=== PATIENT | male | born 1945 | race Caucasian/White ===

== ENCOUNTER → 2016-11-14 | Outpatient (CLI) | payer OTHER ==
[~2016-11-14] MED LIST: CHOL100010 PO; CLR10 PO; CYAN10005 SL; GADAVIST IV PRN; GLUCTAB7 PO; LAMO100T16 PO; MULTTAB5 PO; OMEP40CA PO; POLY150C4 PO
--- NOTE | 2016-11-14 12:08 | DIAGNOSTIC IMAGING REPORT ---
MRI OF THE BRAIN COMBO CLINICAL HISTORY: Dizziness. Gait instability. History of meningioma status post resection. COMPARISON STUDY: MRI of the brain dated 11/18/2013. CT of the brain dated 10/03/2008. TECHNIQUE: MRI of the brain was performed utilizing various T1 and T2-weighted sequences in the axial, sagittal, and coronal planes. Contrast-enhanced sequences were acquired following the administration of 7.5 cc of Gadavist. The examination is performed using the seizure protocol. FINDINGS: Brain parenchyma: There is bifrontal encephalomalacia, as well as anterior herniation of right frontal lobe parenchyma at the craniectomy site which is similar to previous. There is mild patchy subcortical and periventricular microangiopathic disease. Again seen is dural based soft tissue thickening/nodularity identified at the posterior apex. This has only minimally increased in size from the 11/18/2013 examination. This measures up to 1.8 cm in thickness along the midline falx, and measures up to 1.4 cm in thickness deep to the left convexity. There is no significant associated mass effect. These lesion show slightly restricted diffusion. Minimal dural thickening and enhancement is also seen deep to the right parietal craniectomy site, there is a meningioma versus postoperative change. No hemorrhage is identified and there is no restricted diffusion seen typical for acute ischemia. No extra-axial fluid collection is seen. The cerebellar tonsils are normal in configuration. Ventricles, sulci, and cisterns: Prominent secondary to involutional change with ex vacuo dilatation of the frontal horns of the lateral ventricles. See above. Pituitary and sella: Unremarkable. Intracranial vasculature: Normal flow voids are maintained at the skull base. Orbits: The bony orbits are grossly intact. Orbital contents are normal in appearance noting a right ocular lens implant. Sinuses and mastoids: Clear. Calvarium: There are postoperative changes from extensive bifrontal and right parietal craniectomy. Cervical cord: Partially visualized cervical spinal cord is normal in morphology and signal intensity. IMPRESSION: 1. Again seen are extensive postoperative changes from craniectomy with bifrontal encephalomalacia and mild anterior herniation of right frontal lobe parenchyma. This is similar in appearance to the 2014 examination. 2. Again seen is enhancing extra-axial soft tissue material along the posterior/superior midline falx and deep to the left convexity. This has only minimally increased in size from the 2014 examination and likely represents recurrent/residual meningioma. 3. There is no significant mass effect. There is no evidence of hemorrhage or acute ischemia. Electronically signed by: Dejan Yip M.D. 11/14/2016 12:06 PM Dictated Date/Time: 11/14/2016 11:52 AM
== END | disposition home or self-care (01) ==
LOC: C.MRIBC 09:21
PROVIDERS: ATTEND Family Medicine Hospice and Palliative Medicine
DX: R42 Dizziness and giddiness (principal); Z98.890 Other specified postprocedural states

== ENCOUNTER → 2016-12-08 | Outpatient (CLI) | payer OTHER ==
[~2016-12-08] MED LIST changes: -GADAVIST IV PRN
[2016-12-08 12:02] LABS: BASO % 0.2 %; BASO ABS # 0.01 K/uL (0-0.2); COMPLETE YES; EOS % 2.2 %; HEMATOCRIT 42.7 % (42-52); IG% 0.2 %; LYMPH % 14.7 %; LYMPH ABS # 0.73 K/uL (1.2-3.4); MEAN CELL VOLUME 87.5 fL (80-100); MEAN CORPUSCULAR HEMOGLOBIN 28.9 pg (25-34); MONO % 8.9 %; NEUT % 73.8 %; PLATELET COUNT 236 K/uL (130-400); RED BLOOD COUNT 4.88 M/uL (4.7-6.1); WHITE BLOOD COUNT 4.96 K/uL (4.8-10.8)
[2016-12-08 12:18] LABS: ALT/SGPT 28 U/L (12-78); BLOOD UREA NITROGEN 15 mg/dl (7-18); BUN/CREATININE RATIO 18.3 (10-20); CARBON DIOXIDE 27 mmol/L (21-32); CHLORIDE 105 mmol/L (98-107); CREATININE 0.83 mg/dl (0.60-1.40); GLUCOSE 90 mg/dl (70-99); POTASSIUM 4.2 mmol/L (3.5-5.1); SODIUM 140 mmol/L (136-145)
[2016-12-08 12:20] LABS: CALCIUM 9.3 mg/dl (8.5-10.1)
[2016-12-08 12:29] LABS: ALB/GLOB RATIO 1.3 (0.9-2); ALKALINE PHOSPHATASE 106 U/L (45-117); AST/SGOT 18 U/L (15-37)
== END | disposition home or self-care (01) ==
LOC: C.LAB 09:31
PROVIDERS: ATTEND Psychiatry & Neurology Neurology
DX: R56.9 Unspecified convulsions (principal)

== ENCOUNTER 2018-09-10 12:28 | Inpatient (IN) ==
--- NOTE | 2018-09-10 14:29 | Emergency Department Note ---
Entered by Sally Avendaño acting as a scribe for Jaime Lantigua DO History of Present Illness General Chief complaint: Seizure Time Seen by Provider: 09/10/18 13:04 Source: patient and family History of Present Illness Provider complaint: seizures Onset (ago): day(s) (this morning) Location: left and right Severity: similar to prior episodes Pain Consistency: + other (multiple episodes) Quality: + other (seizures) Treatments prior to arrival: other (increased Kepra) The patient is a 72 year old male who presents to the Emergency Room with complaints of multiple episodes of seizures beginning this morning. His family notes the patient's first seizure lasted 10-15 minutes, and the second lasted a few minutes. They report the patient stares into space and will repeat words during these episodes. His family states the patient's caregivers at [facility] believe he needs more skilled care. The patient was seen in the ED 3 days ago for seizures and he was given an IV dose of Kepra and discharged after consult with Dr. Corbett. I did review the patient's test results. He had CT scan of the brain as well as blood work performed. The patient was discharged back to the nursing facility. The patient had a couple of brief seizures today. He had a couple of seizures here in the ED as well that were witnessed by the nurse. The last for less than a minute. They involve a staring episode with some lip smacking. There is no postictal. Once these terminate, the patient is able to carry on a conversation and is awake, alert and oriented. I spoke with Dr. Espinoza about this. He recommends increasing the patient's Lamictal to 400 mg twice a day (from 200 +400). He recommends continuing the patient on the Keppra at 1 g twice a day. The [facility] is unwilling to accept the patient back to their facility as they feel he needs fdc. distribution center manager is currently in the process of trying to find the patient a place to stay at a fdc facility. The patient is currently asymptomatic and without any complaints. He did have a couple of partial seizures here. He was given his evening Lamictal dose of 400 mg. The patient is is felt to be good for [facility] however they wanted the patient to stay overnight and they would accept the patient potentially tomorrow. I spoke with the hospitalist, who will see the patient for further evaluation/observation. Home Medications Home Medications Medication Instructions Recorded Confirmed Type acetaminophen [Tylenol] 650 mg PO Q6H PRN 09/07/18 09/10/18 History amantadine HCl 100 mg PO DAILY 09/07/18 09/10/18 History ascorbic acid (vitamin C) [Vitamin 500 mg PO DAILY 09/07/18 09/10/18 History C] atorvastatin 10 mg PO PM 09/07/18 09/10/18 History chlorhexidine gluconate 15 ml PO BID 09/07/18 09/10/18 History cholecalciferol (vitamin D3) 2,000 unit PO DAILY 09/07/18 09/10/18 History [Vitamin D3] cyanocobalamin (vitamin B-12) 2,500 mcg PO DAILY 09/07/18 09/10/18 History [Vitamin B-12] docusate sodium [Colace] 100 mg PO BID 09/07/18 09/10/18 History doxazosin 2 mg PO BID 09/07/18 09/10/18 History lamotrigine 200 mg PO DAILY 09/07/18 09/10/18 History lamotrigine 400 mg PO PM 09/07/18 09/10/18 History melatonin 6 mg PO HS 09/07/18 09/10/18 History modafinil 100 mg PO DAILY 09/07/18 09/10/18 History multivitamin [Daily Vitamin 1 tab PO PM 09/07/18 09/10/18 History Formula] ondansetron HCl [Zofran] 4 mg PO TID PRN 09/07/18 09/10/18 History pantoprazole 40 mg PO DAILY 09/07/18 09/10/18 History polyethylene glycol 3350 [GlycoLax] 17 g PO DAILY PRN 09/07/18 09/10/18 History propranolol 60 mg PO DAILY 09/07/18 09/10/18 History sennosides [senna] 8.6 mg PO DAILY 09/07/18 09/10/18 History sennosides [senna] 17.2 mg PO Q3D PRN 09/07/18 09/10/18 History sodium chloride 1,000 mg PO DAILY 09/07/18 09/10/18 History zinc sulfate 220 mg PO DAILY 09/07/18 09/10/18 History levetiracetam [Keppra] 2,000 mg PO BID 09/10/18 09/10/18 History Allergies Allergy/AdvReac Type Severity Reaction Status Date / Time Penicillins Allergy Unknown . Verified 09/10/18 13:56 prochlorperazine AdvReac Intermediate tongue Verified 09/10/18 13:56 involuntary movements adhesive AdvReac Mild skin Verified 09/10/18 13:56 reaction latex AdvReac Mild RASH-LATEX Verified 09/10/18 13:56 TAPE amoxicillin AdvReac Unknown Unverified 09/10/18 13:56 Past Med/Surg History Medical History Rectal carcinoma (Chronic ~07/2010) Encounter for removal of earline (Acute) Fall (Acute) Laceration of left hand (Acute) Periorbital contusion of right eye (Acute) Meningioma Seizure Surgical History H/O brain surgery (Resolved) Family History Other Family history non-contributory Social History marital status: Current Living Situation: Personal Care Facility current occupational status: retired Feels Safe at Home: Yes Smoking Status: Never smoker Preferred Language: Nepali Review of Systems See HPI for pertinent positives & negatives. and A total of 10 systems reviewed and were otherwise negative Physical Exam Vital Signs Vital Signs - 24 hr 09/10/18 12:38 09/10/18 14:03 Temperature 36.7 C Temperature Source Oral Sepsis Recent Fever Within 48 Hours No Sepsis Action Taken by Nursing No Action Required Pulse Rate 50 L Pulse Rate [Left] 51 L Respiratory Rate 18 20 Respiratory Effort / Characteristics Non-Labored Spontaneous Non-Labored Spontaneous Respiratory Depth Normal Normal Respiratory Pattern Regular Blood Pressure 133/77 Blood Pressure [Right Arm] 115/73 Blood Pressure Mean 95 Blood Pressure Mean [Right Arm] 87 Pulse Oximetry 98 97 Oxygen Delivery Method Room Air Room Air CONSTITUTIONAL/VITAL SIGNS: Reviewed / noted above. GENERAL: Non-toxic in appearance. Generalized weakness. INTEGUMENTARY: Warm, dry, and [place]. HEAD: Normocephalic. EYES: without scleral icterus or trauma. ENT/OROPHARYNX: clear and moist. LYMPHADENOPATHY/NECK: Is supple without lymphadenopathy or meningismus. RESPIRATORY: Lungs clear and equal. CARDIOVASCULAR: Regular rate and rhythm. GI/ABDOMEN: Soft and nontender. No organomegaly or pulsatile mass. No rebound or guarding. Normal bowel sounds. EXTREMITIES: Warm and well perfused. BACK: No CVA tenderness. NEUROLOGICAL: Intact without focal deficits. PSYCHIATRIC: normal affect. MUSCULOSKELETAL: Normally developed with good muscle tone. Course 1308: Past medical records reviewed. The patient was evaluated in room C3, and a complete history and physical examination were performed. 1427: I reviewed the patient's case with Dr. Espinoza, [facility] neurology. He recommends increasing the patient's Lamictal dose to 400 mg twice daily, and to keep the Keppra dose the same. 1436: I reevaluated and updated the patient and his family. Administered Medications Discontinued Medications Lamotrigine (Lamictal) 400 mg PO NOW STA Stop: 09/10/18 14:35 Last Admin: 09/10/18 14:49 Dose: 400 mg Medical Decision Making Differential Diagnosis Differential includes acute cardiac dysrhythmia, microinfarction, CVA, TIA, dehydration, anemia, electrolyte disturbance, seizure, trauma, intracranial bleeding, acute vascular catastrophe, thoracic aortic dissection, PE, abdominal aortic aneurysm rupture, ectopic rupture. Medical Records Attestation: I reviewed the patient's medical records. Home Medications Current Medication List: was personally reviewed by me Blood Pressure Blood Pressure Findings: Normal blood pressure Blood Pressure Disposition: did not require urgent referral MDM Narrative The patient is a 72 year old male who presents to the Emergency Room with complaints of multiple episodes of seizures beginning this morning. His family notes the patient's first seizure lasted 10-15 minutes, and the second lasted a few minutes. They report the patient stares into space and will repeat words during these episodes. His family states the patient's caregivers at [facility] believe he needs more skilled care. The patient was seen in the ED 3 days ago for seizures and he was given an IV dose of Kepra and discharged after consult with Dr. Corbett. I did review the patient's test results. He had CT scan of the brain as well as blood work performed. The patient was discharged back to the nursing facility. The patient had a couple of brief seizures today. He had a couple of seizures here in the ED as well that were witnessed by the nurse. The last for less than a minute. They involve a staring episode with some lip smacking. There is no postictal. Once these terminate, the patient is able to carry on a conversation and is awake, alert and oriented. I spoke with Dr. Espinoza about this. He recommends increasing the patient's Lamictal to 400 mg twice a day (from 200 +400). He recommends continuing the patient on the Keppra at 1 g twice a day. The [facility] is unwilling to accept the patient back to their facility as they feel he needs fdc. distribution center manager is currently in the process of trying to find the patient a place to stay at a fdc facility. The patient is currently asymptomatic and without any complaints. He did have a couple of partial seizures here. He was given his evening Lamictal dose of 400 mg. The patient is is felt to be good for [facility] however they wanted the patient to stay overnight and they would accept the patient potentially tomorrow. I spoke with the hospitalist, who will see the patient for further evaluation/observation. Impression & Plan Recurrent seizures Discharge Plan Visit Data Chief Complaint: Seizure ED Provider: Jaime Lantigua Discharge Problem: Recurrent seizures Patient Disposition: Being Evaluated by Hospitalist Condition: Good Forms Stand Alone Forms: [facility] Prescriptions Prescriptions: No Action levetiracetam [Keppra] 1,000 mg Tablet 2,000 mg PO BID RF: 0 multivitamin [Daily Vitamin Formula] Tablet 1 tab PO PM RF: 0 sennosides [senna] 8.6 mg Tablet 8.6 mg PO DAILY RF: 0 sennosides [senna] 8.6 mg Tablet 17.2 mg PO Q3D PRN (Reason: no bowel movement) RF: 0 acetaminophen [Tylenol] 325 mg Tablet 650 mg PO Q6H PRN (Reason: pain/fever) RF: 0 lamotrigine 200 mg tablet 200 mg PO DAILY RF: 0 lamotrigine 200 mg tablet 400 mg PO PM RF: 0 atorvastatin 10 mg tablet 10 mg PO PM RF: 0 ondansetron HCl [Zofran] 4 mg Tablet 4 mg PO TID PRN (Reason: Nausea And Vomiting) RF: 0 propranolol 60 mg capsule,extended release 24 hr 60 mg PO DAILY RF: 0 sodium chloride 1 gram Tablet 1,000 mg PO DAILY RF: 0 cyanocobalamin (vitamin B-12) [Vitamin B-12] 1,000 mcg Tablet 2,500 mcg PO DAILY RF: 0 melatonin 3 mg Tablet 6 mg PO HS RF: 0 amantadine HCl 100 mg capsule 100 mg PO DAILY RF: 0 ascorbic acid (vitamin C) [Vitamin C] 500 mg Tablet 500 mg PO DAILY RF: 0 pantoprazole 40 mg tablet,delayed release (DR/EC) 40 mg PO DAILY RF: 0 docusate sodium [Colace] 100 mg Capsule 100 mg PO BID RF: 0 polyethylene glycol 3350 [GlycoLax] 17 gram/dose Powder 17 g PO DAILY PRN (Reason: Constipation) RF: 0 doxazosin 2 mg tablet 2 mg PO BID RF: 0 modafinil 100 mg tablet 100 mg PO DAILY RF: 0 chlorhexidine gluconate 0.12 % mouthwash 15 ml PO BID RF: 0 zinc sulfate 220 (50) mg Capsule 220 mg PO DAILY RF: 0 cholecalciferol (vitamin D3) [Vitamin D3] 1,000 unit Tablet 2,000 unit PO DAILY RF: 0 Referrals Referrals: MARCOS FLEMING [Primary Care Provider] - The scribe's documentation has been prepared under my direction and personally reviewed by me in its entirety. I confirm that the note above accurately reflects all work, treatment, procedures, and medical decision making performed by me.
[2018-09-10] MEDS ORDERED: lamoTRIgine 100 MG TAB PO STA (14:34)
--- NOTE | 2018-09-10 17:48 | History & Physical Report ---
Date of Service September 10, 2018 Assessment & Plan (1) Seizure: Recurrent issue Seen in ED 09/07 with CXR, CT head, CBC, PRP, UA neg Dr. Espinoza recs for increased lamictal dosing Planning for [facility], however they would like pt monitored overnight prior to accepting him (2) HTN (hypertension): continue home meds (3) Hyperlipidemia: continue home meds (4) GERD (gastroesophageal reflux disease): continue home meds (5) DVT prophylaxis: SCDs, likely short duration of admission and will hold on rx proph History of Present Illness Primary Care Provider: LOIDA RODRÍGUEZ 72 y/o M who was brought to the ED for recurrent seizures. Pt was seen in the ED on 09/07 for increased seizure activity. He was treated with additional keppra dosing and sent back to [facility]. Pt continued to have increased seizure activity over the weekend and today the pt and family were told that he is requiring too much care for a H and will need placed in a SNF. Pt's seizures are reported to him as staring episodes and word repeating. He denies hx of shaking seizures. He states he feels fine at this time. He was able to eat most of a tray. Pt denies fever, SOB, chest pain, abd pain, n/v/c/d, LE pain or swelling. Outside of the increased seizures, he states he has felt at his usual. ED spoke with Dr. Espinoza who recommended for increased lamictal, 200mg to 400mg BID. He is familiar with pt from outpt care. ED also spoke with [facility] who has agreed to accept pt, however they would like him monitored overnight with this medication change. Family is not present during my discussion with pt. Allergies Allergy/AdvReac Type Severity Reaction Status Date / Time Penicillins Allergy Unknown . Verified 09/10/18 13:56 prochlorperazine AdvReac Intermediate tongue Verified 09/10/18 13:56 involuntary movements adhesive AdvReac Mild skin Verified 09/10/18 13:56 reaction latex AdvReac Mild RASH-LATEX Verified 09/10/18 13:56 TAPE amoxicillin AdvReac Unknown Unverified 09/10/18 13:56 Home Medications Home Medications Medication Instructions Recorded Confirmed Type acetaminophen [Tylenol] 650 mg PO Q6H PRN 09/07/18 09/10/18 History amantadine HCl 100 mg PO DAILY 09/07/18 09/10/18 History ascorbic acid (vitamin C) [Vitamin 500 mg PO DAILY 09/07/18 09/10/18 History C] atorvastatin 10 mg PO PM 09/07/18 09/10/18 History chlorhexidine gluconate 15 ml PO BID 09/07/18 09/10/18 History cholecalciferol (vitamin D3) 2,000 unit PO DAILY 09/07/18 09/10/18 History [Vitamin D3] cyanocobalamin (vitamin B-12) 2,500 mcg PO DAILY 09/07/18 09/10/18 History [Vitamin B-12] docusate sodium [Colace] 100 mg PO BID 09/07/18 09/10/18 History doxazosin 2 mg PO BID 09/07/18 09/10/18 History lamotrigine 200 mg PO DAILY 09/07/18 09/10/18 History lamotrigine 400 mg PO PM 09/07/18 09/10/18 History melatonin 6 mg PO HS 09/07/18 09/10/18 History modafinil 100 mg PO DAILY 09/07/18 09/10/18 History multivitamin [Daily Vitamin 1 tab PO PM 09/07/18 09/10/18 History Formula] ondansetron HCl [Zofran] 4 mg PO TID PRN 09/07/18 09/10/18 History pantoprazole 40 mg PO DAILY 09/07/18 09/10/18 History polyethylene glycol 3350 [GlycoLax] 17 g PO DAILY PRN 09/07/18 09/10/18 History propranolol 60 mg PO DAILY 09/07/18 09/10/18 History sennosides [senna] 8.6 mg PO DAILY 09/07/18 09/10/18 History sennosides [senna] 17.2 mg PO Q3D PRN 09/07/18 09/10/18 History sodium chloride 1,000 mg PO DAILY 09/07/18 09/10/18 History zinc sulfate 220 mg PO DAILY 09/07/18 09/10/18 History levetiracetam [Keppra] 2,000 mg PO BID 09/10/18 09/10/18 History Past Med/Surg History Medical History Rectal carcinoma (Chronic ~07/2010) Encounter for removal of earline (Acute) Fall (Acute) Laceration of left hand (Acute) Periorbital contusion of right eye (Acute) Meningioma Seizure Surgical History H/O brain surgery (Resolved) Social History marital status: Current Living Situation: Personal Care Facility current occupational status: retired Feels Safe at Home: Yes Smoking Status: Never smoker Hx Alcohol Use: No Hx Substance Use: No Preferred Language: Mohawk Review of Systems Pertinent positives and negatives reviewed in HPI--all others negative Physical Exam 2 Vital Signs (Past 24 Hours): Last Vital Signs Temp 36.7 C 09/10/18 12:38 Pulse 61 09/10/18 16:47 Resp 20 09/10/18 16:47 BP 115/73 09/10/18 14:03 Pulse Ox 98 09/10/18 16:47 Constitutional: WD/WN, vitals as above Eyes: normal visual dill by confrontation and + anicteric sclerae Neck: normal visual inspection and trachea midline Respiratory: normal respiratory effort, lungs clear to auscultation Cardiovascular: Rate/Rhythm: regular rate and regular rhythm Gastrointestinal (Abdomen): Inspection/Auscultation: abdomen not distended Percussion/Palpation: abdomen soft; abdomen nontender Musculoskeletal: Head/Neck/Chest: normocephalic and head atraumatic negative for edema, peripheral pulses intact Skin: no rashes, warm and dry Neurologic: awake; not confused Speech / Cognition: normal speech Psychiatric: A+Ox3, euthymic affect Results & Data Diagnostic Findings CT head 09/07 neg for acute Code Status & VTE Plan Code Status Full code VTE Prophylaxis Plan VTE Prophylaxis will be ordered: Yes
[2018-09-10] MEDS ORDERED: MAGNESIUM HYDROXIDE SUSP 30 ML UDC PO PRN (18:32)
[2018-09-10] MEDS ORDERED: ONDANSETRON 4 MG TAB PO PRN (18:32)
[2018-09-10] MEDS ORDERED: POLYETHYLENE (MIRALAX) 17 GM PACK PO PRN (18:32)
[2018-09-10] MEDS ORDERED: SENNA 8.6 MG TAB PO PRN (18:32)
[2018-09-10] MEDS ORDERED: ONDANSETRON INJ 2 MG/ML 2 ML VIAL IV PRN (18:32)
[2018-09-10] MEDS ORDERED: ACETAMINOPHEN 325 MG TAB PO PRN ×2 (18:32)
[2018-09-10] MEDS: DOCUSATE SODIUM 100 MG CAP PO SCH (20:39)
[2018-09-10] MEDS: MULTIVITAMIN TAB PO SCH (20:39)
[2018-09-10] MEDS: levETIRAcetam 500 MG TAB PO SCH (20:40)
[2018-09-10] MEDS: ATORVASTATIN 10 MG TAB PO SCH (20:40)
[2018-09-10] MEDS: lamoTRIgine 100 MG TAB PO SCH (20:40)
[2018-09-10] MEDS: DOXAZosin MESYLATE TAB 2 MG TAB PO SCH (20:41)
[2018-09-10] MEDS: CHLORHEXIDINE GLUCONATE 0.12% 480 ML MT SCH (20:41)
[2018-09-10] MEDS ORDERED: MELATONIN 6 MG PO SCH (21:00)
[2018-09-10] MEDS ORDERED: LORazepam 1 MG/2 ML VIAL IV PRN (23:43)
[2018-09-11] MEDS: DOXAZosin MESYLATE TAB 2 MG TAB PO SCH ×2 (08:31→20:17)
[2018-09-11] MEDS: PROPRANOLOL HCL 60 MG LA CAP PO SCH (08:31)
[2018-09-11] MEDS: DOCUSATE SODIUM 100 MG CAP PO SCH ×2 (08:31→20:17)
[2018-09-11] MEDS: lamoTRIgine 100 MG TAB PO SCH ×2 (08:32→20:17)
[2018-09-11] MEDS: CHLORHEXIDINE GLUCONATE 0.12% 480 ML MT SCH ×2 (08:32→20:18)
[2018-09-11] MEDS: levETIRAcetam 500 MG TAB PO SCH ×2 (08:32→20:18)
[2018-09-11] MEDS: SODIUM CHLORIDE 1 GM TABLET PO SCH (08:33)
[2018-09-11] MEDS: SENNA 8.6 MG TAB PO SCH (08:33)
[2018-09-11] MEDS: PANTOprazole 40 MG TAB PO SCH (08:33)
[2018-09-11] MEDS: AMANTADINE HCL 100 MG CAPSULE PO SCH (08:34)
[2018-09-11] MEDS: CYANOCOBALAMIN (VITAMIN B-12) 2,500 MCG TAB.SUBL SL SCH (08:34)
[2018-09-11] MEDS: CHOLECALCIFEROL 1,000 UNITS TAB PO SCH (08:34)
[2018-09-11] MEDS: ASCORBIC ACID 500 MG TAB PO SCH (08:34)
[2018-09-11] MEDS: ZINC SULFATE 220 MG CAPSULE PO SCH (08:35)
[2018-09-11] MEDS: MODAFINIL 100 MG TAB PO SCH (08:52)
--- NOTE | 2018-09-11 11:02 | Procedure Note ---
EEG Procedure Note Date of Service September 11, 2018 Start / End Times Start Time: 9:29am End Time: 9:49am Referring Physician Dr Singh History 72 yr old male with recurrent seizure like activity. EEG for further eval of seizure etiology Home Medication List Home Medications Medication Instructions Recorded Confirmed Type acetaminophen [Tylenol] 650 mg PO Q6H PRN 09/07/18 09/10/18 History amantadine HCl 100 mg PO DAILY 09/07/18 09/10/18 History ascorbic acid (vitamin C) [Vitamin 500 mg PO DAILY 09/07/18 09/10/18 History C] atorvastatin 10 mg PO PM 09/07/18 09/10/18 History chlorhexidine gluconate 15 ml PO BID 09/07/18 09/10/18 History cholecalciferol (vitamin D3) 2,000 unit PO DAILY 09/07/18 09/10/18 History [Vitamin D3] cyanocobalamin (vitamin B-12) 2,500 mcg PO DAILY 09/07/18 09/10/18 History [Vitamin B-12] docusate sodium [Colace] 100 mg PO BID 09/07/18 09/10/18 History doxazosin 2 mg PO BID 09/07/18 09/10/18 History lamotrigine 200 mg PO DAILY 09/07/18 09/10/18 History lamotrigine 400 mg PO PM 09/07/18 09/10/18 History melatonin 6 mg PO HS 09/07/18 09/10/18 History modafinil 100 mg PO DAILY 09/07/18 09/10/18 History multivitamin [Daily Vitamin 1 tab PO PM 09/07/18 09/10/18 History Formula] ondansetron HCl [Zofran] 4 mg PO TID PRN 09/07/18 09/10/18 History pantoprazole 40 mg PO DAILY 09/07/18 09/10/18 History polyethylene glycol 3350 [GlycoLax] 17 g PO DAILY PRN 09/07/18 09/10/18 History propranolol 60 mg PO DAILY 09/07/18 09/10/18 History sennosides [senna] 8.6 mg PO DAILY 09/07/18 09/10/18 History sennosides [senna] 17.2 mg PO Q3D PRN 09/07/18 09/10/18 History sodium chloride 1,000 mg PO DAILY 09/07/18 09/10/18 History zinc sulfate 220 mg PO DAILY 09/07/18 09/10/18 History levetiracetam [Keppra] 2,000 mg PO BID 09/10/18 09/10/18 History Inpatient Medication List Amantadine HCl (Symmetrel) 100 mg PO DAILY TRA Stop: 10/11/18 08:59 Last Admin: 09/11/18 08:34 Dose: 100 mg Ascorbic Acid (Vitamin C) 500 mg PO DAILY TRA Stop: 10/11/18 08:59 Last Admin: 09/11/18 08:34 Dose: 500 mg Atorvastatin Calcium (Lipitor) 10 mg PO PM TRA Stop: 10/10/18 20:59 Last Admin: 09/10/18 20:40 Dose: 10 mg Chlorhexidine Gluconate (Peridex) 15 ml MT BID TRA Stop: 10/10/18 20:59 Last Admin: 09/11/18 08:32 Dose: 15 ml Admin: 09/10/18 20:41 Dose: 15 ml Cyanocobalamin (Vitamin B-12) 2,500 mcg SL DAILY TRA Stop: 10/11/18 08:59 Last Admin: 09/11/18 08:34 Dose: 2,500 mcg Docusate Sodium (Colace) 100 mg PO BID TRA Stop: 10/10/18 20:59 Last Admin: 09/11/18 08:31 Dose: 100 mg Admin: 09/10/18 20:39 Dose: 100 mg Doxazosin Mesylate (Cardura) 2 mg PO BID TRA Stop: 10/10/18 20:59 Last Admin: 09/11/18 08:31 Dose: 2 mg Admin: 09/10/18 20:41 Dose: 2 mg Lamotrigine (Lamictal) 400 mg PO BID TRA Stop: 10/10/18 20:59 Last Admin: 09/11/18 08:32 Dose: 400 mg Admin: 09/10/18 20:40 Dose: 400 mg Levetiracetam (Keppra) 2,000 mg PO BID TRA Stop: 10/10/18 20:59 Last Admin: 09/11/18 08:32 Dose: 2,000 mg Admin: 09/10/18 20:40 Dose: 2,000 mg Modafinil (Provigil) 100 mg PO DAILY TRA Stop: 10/11/18 08:59 Last Admin: 09/11/18 08:52 Dose: 100 mg Multivitamins (Multivitamin Tab) 1 tab PO PM TRA Stop: 10/10/18 20:59 Last Admin: 09/10/18 20:39 Dose: 1 tab Pantoprazole Sodium (Protonix) 40 mg PO DAILY TRA Stop: 10/11/18 08:59 Last Admin: 09/11/18 08:33 Dose: 40 mg Propranolol HCl (Inderal La) 60 mg PO DAILY TRA Stop: 10/11/18 08:59 Last Admin: 09/11/18 08:31 Dose: 60 mg Sennosides (Senokot) 8.6 mg PO DAILY TRA Stop: 10/11/18 08:59 Last Admin: 09/11/18 08:33 Dose: 8.6 mg Sodium Chloride (Sodium Chloride) 1 gm PO DAILY TRA Stop: 10/11/18 08:59 Last Admin: 09/11/18 08:33 Dose: 1 gm Vitamin D (Vitamin D3) 2,000 units PO DAILY TRA Stop: 10/11/18 08:59 Last Admin: 09/11/18 08:34 Dose: 2,000 units Zinc Sulfate (Zinc Sulfate) 220 mg PO DAILY TRA Stop: 10/11/18 08:59 Last Admin: 09/11/18 08:35 Dose: 220 mg Discontinued Medications Lamotrigine (Lamictal) 400 mg PO NOW STA Stop: 09/10/18 14:35 Last Admin: 09/10/18 14:49 Dose: 400 mg Description This is a 21 electrode EEG with a single channel dedicated to limited EKG. The electrodes were placed in accordance with the International 10-20 system. Moderate to severe technical limitations due to frequent movement artifact. At the start of the recording the patient was awake but reportedly confused. Background was poorly organized with no well formed anterior to posterior gradient. Background was composed of predominantly 6-7Hz theta frequencies with intermixed alpha and beta frequencies. Hyperventilation and Intermittent photic stimulation were not done due to mental status. There was no state changes. Interpretation This is an abnormal routine EEG secondary to mild-moderate background disorganization and slowing. There was no clear focal slowing, electrographic seizures or epileptiform discharges, but this EEG was technically limited by frequent movement artifact. Clinical Correlation This EEG indicates a mild to moderate encephalopathy of nonspecific etiology.
--- NOTE | 2018-09-11 11:02 | Neurology Consultation ---
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 Continue Lamictal and Keppra at the current dosages which are currently maximal. Given that this patient continues to experience probable partial complex seizures I would recommend adding Vimpat 50 mg twice daily as an adjunctive anticonvulsant. The dose of this medication may be increased at weekly intervals depending on his clinical status going forward. 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 Patient also has chronic motor weakness affecting the lower limbs, right greater than left as a result of the observed chronic frontal encephalomalacia. These issues are chronic and also impact this patient 's ability to care for himself and would also be expected to contribute to his need for long term placement. History of Present Illness Reason for Consultation: Recurrent seizures Requesting Physician: Ivett Johansen DO Attending Physician: Hugo Flores History of Present Illness The patient is a 72-year-old male with a history of parafalcine meningioma treated with resection and radiation over 10 years ago and subsequent development of a seizure disorder, probably partial complex seizures, for which she follows periodically with Dr. Espinoza. The patient's seizures have been characterized as episodic staring, lip smacking, and repeating words. These episodes have been occurring intermittently in spite of treatment with increasing dosages of Lamictal and Keppra. The patient has been admitted for further evaluation of these recurrent spells and for eventual transfer to a nursing facility given his chronic neurological impairments that impact his ability to function independently. The patient is able to relay some details pertaining to his past medical history although he speaks in a somewhat abulic fashion and appears moderately inattentive. He also exhibits a moderate bilateral upper extremity action tremor as well as some mild chronic right- sided weakness which impacts his ability to care for self and ambulate. He is not really able to give a greater degree of details pertaining to his episodic seizures although the episodes reportedly last a few minutes and are followed by a return to normal baseline functioning. They have been characterized as recurrent partial complex seizures. Allergies Allergy/AdvReac Type Severity Reaction Status Date / Time Penicillins Allergy Unknown . Verified 09/10/18 13:56 prochlorperazine AdvReac Intermediate tongue Verified 09/10/18 13:56 involuntary movements adhesive AdvReac Mild skin Verified 09/10/18 13:56 reaction latex AdvReac Mild RASH-LATEX Verified 09/10/18 13:56 TAPE amoxicillin AdvReac Unknown Unverified 09/10/18 13:56 Home Medications Home Medications Medication Instructions Recorded Confirmed Type acetaminophen [Tylenol] 650 mg PO Q6H PRN 09/07/18 09/10/18 History amantadine HCl 100 mg PO DAILY 09/07/18 09/10/18 History ascorbic acid (vitamin C) [Vitamin 500 mg PO DAILY 09/07/18 09/10/18 History C] atorvastatin 10 mg PO PM 09/07/18 09/10/18 History chlorhexidine gluconate 15 ml PO BID 09/07/18 09/10/18 History cholecalciferol (vitamin D3) 2,000 unit PO DAILY 09/07/18 09/10/18 History [Vitamin D3] cyanocobalamin (vitamin B-12) 2,500 mcg PO DAILY 09/07/18 09/10/18 History [Vitamin B-12] docusate sodium [Colace] 100 mg PO BID 09/07/18 09/10/18 History doxazosin 2 mg PO BID 09/07/18 09/10/18 History lamotrigine 200 mg PO DAILY 09/07/18 09/10/18 History lamotrigine 400 mg PO PM 09/07/18 09/10/18 History melatonin 6 mg PO HS 09/07/18 09/10/18 History modafinil 100 mg PO DAILY 09/07/18 09/10/18 History multivitamin [Daily Vitamin 1 tab PO PM 09/07/18 09/10/18 History Formula] ondansetron HCl [Zofran] 4 mg PO TID PRN 09/07/18 09/10/18 History pantoprazole 40 mg PO DAILY 09/07/18 09/10/18 History polyethylene glycol 3350 [GlycoLax] 17 g PO DAILY PRN 09/07/18 09/10/18 History propranolol 60 mg PO DAILY 09/07/18 09/10/18 History sennosides [senna] 8.6 mg PO DAILY 09/07/18 09/10/18 History sennosides [senna] 17.2 mg PO Q3D PRN 09/07/18 09/10/18 History sodium chloride 1,000 mg PO DAILY 09/07/18 09/10/18 History zinc sulfate 220 mg PO DAILY 09/07/18 09/10/18 History levetiracetam [Keppra] 2,000 mg PO BID 09/10/18 09/10/18 History Patient History Medical History Rectal carcinoma (Chronic ~07/2010) Encounter for removal of earline (Acute) Fall (Acute) Laceration of left hand (Acute) Periorbital contusion of right eye (Acute) Meningioma Seizure Surgical History H/O brain surgery (Resolved) Family History Other Family history non-contributory Social History marital status: Current Living Situation: Personal Care Facility current occupational status: retired Other Information That Helps Us Care for You: No Feels Safe at Home: Yes Safety Concerns: Feels Safe At This Time Smoking Status: Never smoker Hx Alcohol Use: No Hx Substance Use: No Beliefs That Will Affect Care: None Preferred Language: Setswana Communication Ability: Effective Side Door Worker Required: No Review of Systems Constitutional: no fever and no chills Eyes: no blind spots and no diplopia Ear, Nose, Mouth, Throat: no hearing loss Respiratory: no dyspnea Cardiovascular: no chest pain Gastrointestinal: no nausea and no vomiting Genitourinary (Male): no dysuria Musculoskeletal: no myalgia Integumentary: no rash and no lesions Neurologic: as per Subjective / HPI, + seizure-like activity and + behavioral changes Psychiatric: as per Subjective / HPI and + behavioral changes Hematologic / Lymphatic: no easy bleeding and no easy bruising Physical Exam 2 Vital Signs (Past 24 Hours): Last Vital Signs Temp 36.5 C 09/11/18 08:03 Pulse 62 09/11/18 08:26 Resp 18 09/11/18 08:03 BP 129/81 09/11/18 08:03 Pulse Ox 95 09/11/18 08:03 Physical Exam: The patient is a well-developed, well-nourished elderly male. He is alert and oriented to person and hospital only. Recent and remote memory intact. He is modestly inattentive. Concentration impaired. He exhibits some difficulty following multistep commands. Patient is able to name objects and repeat phrases although speech is slow and aprosodic. Knowledge of vocabulary seems to be normal. Visual dill full to confrontation. Visual acuity normal. Pupils equal round reactive to light and accommodation. Eye movements normal. There is no gaze preference or nystagmus. Facial sensation intact. There is mild flattening of the right nasolabial fold. Hearing intact. Palate elevates to midline. Shoulder shrug intact. Tongue protrudes to midline. Sensation intact all modalities in all 4 limbs. Deep tendon reflexes are slightly increased for the right arm and leg as compared to the left. Right plantar response upgoing. Left plantar response downgoing. There is moderate dysmetria with finger to nose and heel to clifford on the right. No dysmetria with finger to nose or heel to clifford on the left. Ophthalmoscopic examination reveals normal-appearing optic disks and posterior segments. No papilledema or hemorrhages. Quite a pulses normal bilaterally, no bruits to auscultation. Gait and station cannot be tested. Patient exhibits very mild weakness for the right arm, moderate weakness of the right leg. Normal strength for the left arm and leg. Muscle tone normal throughout. No atrophy. No abnormal movements observed. Results & Data Laboratory Results A recently completed CBC and conference of metabolic panel are normal. Up-to- date lamotrigine and levetiracetam levels are pending. Diagnostic Findings I reviewed the images as well as the radiologist interpretation of the recently completed CT of the head. The study reveals bifrontal encephalomalacia, left greater than right. No evidence of hemorrhage or acute process. I reviewed the recently completed EEG tracing. There is evidence of fairly continuous bifrontal sharply contoured theta slowing, left greater than right suggestive of focal cerebral dysfunction. See report for further details.
--- NOTE | 2018-09-11 11:39 | Procedure Note ---
EEG Procedure Note Date of Service September 11, 2018 Start / End Times Start Time: 9:29 AM End Time: 9:49 AM Referring Physician Cam Singh MD History Seizure disorder, suspected complex partial seizures, history of remote parafalcine meningioma resection with residual frontal lobe encephalomalacia. Home Medication List Home Medications Medication Instructions Recorded Confirmed Type acetaminophen [Tylenol] 650 mg PO Q6H PRN 09/07/18 09/10/18 History amantadine HCl 100 mg PO DAILY 09/07/18 09/10/18 History ascorbic acid (vitamin C) [Vitamin 500 mg PO DAILY 09/07/18 09/10/18 History C] atorvastatin 10 mg PO PM 09/07/18 09/10/18 History chlorhexidine gluconate 15 ml PO BID 09/07/18 09/10/18 History cholecalciferol (vitamin D3) 2,000 unit PO DAILY 09/07/18 09/10/18 History [Vitamin D3] cyanocobalamin (vitamin B-12) 2,500 mcg PO DAILY 09/07/18 09/10/18 History [Vitamin B-12] docusate sodium [Colace] 100 mg PO BID 09/07/18 09/10/18 History doxazosin 2 mg PO BID 09/07/18 09/10/18 History lamotrigine 200 mg PO DAILY 09/07/18 09/10/18 History lamotrigine 400 mg PO PM 09/07/18 09/10/18 History melatonin 6 mg PO HS 09/07/18 09/10/18 History modafinil 100 mg PO DAILY 09/07/18 09/10/18 History multivitamin [Daily Vitamin 1 tab PO PM 09/07/18 09/10/18 History Formula] ondansetron HCl [Zofran] 4 mg PO TID PRN 09/07/18 09/10/18 History pantoprazole 40 mg PO DAILY 09/07/18 09/10/18 History polyethylene glycol 3350 [GlycoLax] 17 g PO DAILY PRN 09/07/18 09/10/18 History propranolol 60 mg PO DAILY 09/07/18 09/10/18 History sennosides [senna] 8.6 mg PO DAILY 09/07/18 09/10/18 History sennosides [senna] 17.2 mg PO Q3D PRN 09/07/18 09/10/18 History sodium chloride 1,000 mg PO DAILY 09/07/18 09/10/18 History zinc sulfate 220 mg PO DAILY 09/07/18 09/10/18 History levetiracetam [Keppra] 2,000 mg PO BID 09/10/18 09/10/18 History Inpatient Medication List Amantadine HCl (Symmetrel) 100 mg PO DAILY TRA Stop: 10/11/18 08:59 Last Admin: 09/11/18 08:34 Dose: 100 mg Ascorbic Acid (Vitamin C) 500 mg PO DAILY TRA Stop: 10/11/18 08:59 Last Admin: 09/11/18 08:34 Dose: 500 mg Atorvastatin Calcium (Lipitor) 10 mg PO PM TRA Stop: 10/10/18 20:59 Last Admin: 09/10/18 20:40 Dose: 10 mg Chlorhexidine Gluconate (Peridex) 15 ml MT BID TRA Stop: 10/10/18 20:59 Last Admin: 09/11/18 08:32 Dose: 15 ml Admin: 09/10/18 20:41 Dose: 15 ml Cyanocobalamin (Vitamin B-12) 2,500 mcg SL DAILY TRA Stop: 10/11/18 08:59 Last Admin: 09/11/18 08:34 Dose: 2,500 mcg Docusate Sodium (Colace) 100 mg PO BID TRA Stop: 10/10/18 20:59 Last Admin: 09/11/18 08:31 Dose: 100 mg Admin: 09/10/18 20:39 Dose: 100 mg Doxazosin Mesylate (Cardura) 2 mg PO BID TRA Stop: 10/10/18 20:59 Last Admin: 09/11/18 08:31 Dose: 2 mg Admin: 09/10/18 20:41 Dose: 2 mg Lamotrigine (Lamictal) 400 mg PO BID TRA Stop: 10/10/18 20:59 Last Admin: 09/11/18 08:32 Dose: 400 mg Admin: 09/10/18 20:40 Dose: 400 mg Levetiracetam (Keppra) 2,000 mg PO BID TRA Stop: 10/10/18 20:59 Last Admin: 09/11/18 08:32 Dose: 2,000 mg Admin: 09/10/18 20:40 Dose: 2,000 mg Modafinil (Provigil) 100 mg PO DAILY TRA Stop: 10/11/18 08:59 Last Admin: 09/11/18 08:52 Dose: 100 mg Multivitamins (Multivitamin Tab) 1 tab PO PM TRA Stop: 10/10/18 20:59 Last Admin: 09/10/18 20:39 Dose: 1 tab Pantoprazole Sodium (Protonix) 40 mg PO DAILY TRA Stop: 10/11/18 08:59 Last Admin: 09/11/18 08:33 Dose: 40 mg Propranolol HCl (Inderal La) 60 mg PO DAILY TRA Stop: 10/11/18 08:59 Last Admin: 09/11/18 08:31 Dose: 60 mg Sennosides (Senokot) 8.6 mg PO DAILY TRA Stop: 10/11/18 08:59 Last Admin: 09/11/18 08:33 Dose: 8.6 mg Sodium Chloride (Sodium Chloride) 1 gm PO DAILY TRA Stop: 10/11/18 08:59 Last Admin: 09/11/18 08:33 Dose: 1 gm Vitamin D (Vitamin D3) 2,000 units PO DAILY TRA Stop: 10/11/18 08:59 Last Admin: 09/11/18 08:34 Dose: 2,000 units Zinc Sulfate (Zinc Sulfate) 220 mg PO DAILY TRA Stop: 10/11/18 08:59 Last Admin: 09/11/18 08:35 Dose: 220 mg Discontinued Medications Lamotrigine (Lamictal) 400 mg PO NOW STA Stop: 09/10/18 14:35 Last Admin: 09/10/18 14:49 Dose: 400 mg Description This is a 21 electrode EEG with a single channel dedicated to limited EKG. The electrodes were placed in accordance with the International 10-20 system. There is a posterior dominant rhythm of 10 Hz which is symmetrically distributed and attenuates with eye-opening. There is a normal anterior to posterior organization. Photic stimulation and hyperventilation are not performed. There is fairly continuous sharply contoured frontal slowing in the theta frequency range, greater on the left. No spikes or spike wave complexes observed. There is a moderate degree of admixed polymorphic theta activity seen throughout the study as well. Interpretation This is an abnormal EEG revealing focal slowing localizing to the frontal head regions, left greater than right with some associated sharply contoured waveforms potentially consistent with an underlying predisposition for focal seizures. There is also evidence of a moderate degree of generalized background slowing suggestive of a nonspecific encephalopathy. Clinical Correlation As above, abnormal EEG with focal cerebral dysfunction consistent with this patient's history of meningioma resection and potentially consistent with a lower threshold for seizures. The study also reveals findings suggestive of a nonspecific generalized encephalopathy.
[2018-09-11] MEDS: LACOSAMIDE 50 MG TABLET PO SCH ×2 (13:59→20:45)
[2018-09-11] MEDS: ATORVASTATIN 10 MG TAB PO SCH (20:18)
[2018-09-11] MEDS: MULTIVITAMIN TAB PO SCH (20:19)
[2018-09-12] MEDS: lamoTRIgine 100 MG TAB PO SCH ×2 (08:01→20:10)
[2018-09-12] MEDS: SODIUM CHLORIDE 1 GM TABLET PO SCH (08:02)
[2018-09-12] MEDS: SENNA 8.6 MG TAB PO SCH (08:02)
[2018-09-12] MEDS: AMANTADINE HCL 100 MG CAPSULE PO SCH (08:02)
[2018-09-12] MEDS: levETIRAcetam 500 MG TAB PO SCH ×2 (08:02→20:08)
[2018-09-12] MEDS: PROPRANOLOL HCL 60 MG LA CAP PO SCH (08:02)
[2018-09-12] MEDS: PANTOprazole 40 MG TAB PO SCH (08:02)
[2018-09-12] MEDS: ZINC SULFATE 220 MG CAPSULE PO SCH (08:02)
[2018-09-12] MEDS: CHLORHEXIDINE GLUCONATE 0.12% 480 ML MT SCH ×2 (08:02→20:11)
[2018-09-12] MEDS: ASCORBIC ACID 500 MG TAB PO SCH (08:02)
[2018-09-12] MEDS: CHOLECALCIFEROL 1,000 UNITS TAB PO SCH (08:02)
[2018-09-12] MEDS: DOCUSATE SODIUM 100 MG CAP PO SCH ×2 (08:02→20:08)
[2018-09-12] MEDS: DOXAZosin MESYLATE TAB 2 MG TAB PO SCH ×2 (08:02→20:07)
[2018-09-12] MEDS: CYANOCOBALAMIN (VITAMIN B-12) 2,500 MCG TAB.SUBL SL SCH (08:03)
[2018-09-12] MEDS: MODAFINIL 100 MG TAB PO SCH (08:08)
[2018-09-12] MEDS: LACOSAMIDE 50 MG TABLET PO SCH ×2 (09:18→20:11)
--- NOTE | 2018-09-12 09:18 | Hospitalist Progress Note ---
Date of Service September 11, 2018 Assessment & Plan (1) Seizure: Recurrent issue Seen in ED 09/07 with CXR, CT head, CBC, PRP, UA neg Continue Lamictal and Keppra at the current dosages which are currently maximal. Add vimpat BID. Planning for [facility], however they would like pt monitored overnight prior to accepting him (2) HTN (hypertension): continue home meds (3) Hyperlipidemia: continue home meds (4) GERD (gastroesophageal reflux disease): continue home meds (5) DVT prophylaxis: SCDs, likely short duration of admission and will hold on rx proph Spent 25 minutes in management of patient. Subjective Patient appears to be tired today.He reports no complaints. Nurse today me that patient appeared to have a seizure around noon which lasted about 45 minutes. He was staring at the window with his lips smacking. Review of Systems All systems reviewed & are unremarkable except as noted in HPI & below Physical Exam 2 Vital Signs (Past 24 Hours): Last Vital Signs Temp 36.5 C 09/11/18 15:00 Pulse 53 09/11/18 15:00 Resp 19 09/11/18 15:00 BP 138/77 09/11/18 15:00 Pulse Ox 93 09/11/18 15:00 Physical Exam: Constitutional: WD/WN, vitals as above Eyes: + anicteric sclerae Neck: normal visual inspection and trachea midline Respiratory: normal respiratory effort, lungs clear to auscultation Cardiovascular: Rate/Rhythm: regular rate and regular rhythm Gastrointestinal (Abdomen): Inspection/Auscultation: abdomen not distended Percussion/Palpation: abdomen soft; abdomen nontender Musculoskeletal: Head/Neck/Chest: normocephalic and head atraumatic negative for edema, peripheral pulses intact Skin: no rashes, warm and dry Neurologic: awake; not confused Speech / Cognition: normal speech Psychiatric: A+Ox3, euthymic affect
[2018-09-12] MEDS: ATORVASTATIN 10 MG TAB PO SCH (20:10)
[2018-09-12] MEDS: MULTIVITAMIN TAB PO SCH (20:11)
--- NOTE | 2018-09-12 23:54 | Hospitalist Progress Note ---
Date of Service September 12, 2018 Assessment & Plan (1) Seizure: Recurrent issue Seen in ED 09/07 with CXR, CT head, CBC, PRP, UA neg Continue Lamictal and Keppra at the current dosages which are currently maximal. Added vimpat BID on 09/11. Planning for [facility], however patient needs to be here for 3 midnights. Perhaps 09/14. (2) HTN (hypertension): continue home meds (3) Hyperlipidemia: continue home meds (4) GERD (gastroesophageal reflux disease): continue home meds (5) DVT prophylaxis: SCDs, likely short duration of admission and will hold on rx proph Spent 25 minutes in management of patient. Subjective Patient reports no new complaints. Nurse states he has not had a new seizure today. He was staring at the window with his lips smacking. Physical Exam 2 Vital Signs (Past 24 Hours): Last Vital Signs Temp 36.7 C 09/12/18 23:37 Pulse 56 L 09/12/18 23:37 Resp 18 09/12/18 23:37 BP 127/84 09/12/18 23:37 Pulse Ox 94 09/12/18 23:37 Physical Exam: Constitutional: WD/WN, vitals as above Eyes: + anicteric sclerae Neck: normal visual inspection and trachea midline Respiratory: normal respiratory effort, lungs clear to auscultation Cardiovascular: Rate/Rhythm: regular rate and regular rhythm Gastrointestinal (Abdomen): Inspection/Auscultation: abdomen not distended Percussion/Palpation: abdomen soft; abdomen nontender Musculoskeletal: Head/Neck/Chest: normocephalic and head atraumatic negative for edema, peripheral pulses intact Skin: no rashes, warm and dry Neurologic: awake; not confused Speech / Cognition: normal speech Psychiatric: A+Ox3, euthymic affect
[2018-09-13] MEDS: LACOSAMIDE 50 MG TABLET PO SCH ×2 (07:28→20:39)
[2018-09-13] MEDS: PROPRANOLOL HCL 60 MG LA CAP PO SCH (07:28)
[2018-09-13] MEDS: ASCORBIC ACID 500 MG TAB PO SCH (07:28)
[2018-09-13] MEDS: AMANTADINE HCL 100 MG CAPSULE PO SCH (07:28)
[2018-09-13] MEDS: PANTOprazole 40 MG TAB PO SCH (07:29)
[2018-09-13] MEDS: SODIUM CHLORIDE 1 GM TABLET PO SCH (07:29)
[2018-09-13] MEDS: CHOLECALCIFEROL 1,000 UNITS TAB PO SCH (07:29)
[2018-09-13] MEDS: lamoTRIgine 100 MG TAB PO SCH ×2 (07:29→20:40)
[2018-09-13] MEDS: SENNA 8.6 MG TAB PO SCH (07:29)
[2018-09-13] MEDS: CYANOCOBALAMIN (VITAMIN B-12) 2,500 MCG TAB.SUBL SL SCH (07:29)
[2018-09-13] MEDS: ZINC SULFATE 220 MG CAPSULE PO SCH (07:29)
[2018-09-13] MEDS: levETIRAcetam 500 MG TAB PO SCH ×2 (07:29→20:40)
[2018-09-13] MEDS: DOXAZosin MESYLATE TAB 2 MG TAB PO SCH ×2 (07:30→20:38)
[2018-09-13] MEDS: CHLORHEXIDINE GLUCONATE 0.12% 480 ML MT SCH ×2 (07:30→20:42)
[2018-09-13] MEDS: DOCUSATE SODIUM 100 MG CAP PO SCH ×2 (07:32→20:41)
[2018-09-13] MEDS: MODAFINIL 100 MG TAB PO SCH (07:32)
[2018-09-13] MEDS: ATORVASTATIN 10 MG TAB PO SCH (20:41)
[2018-09-13] MEDS: MULTIVITAMIN TAB PO SCH (20:41)
--- NOTE | 2018-09-13 22:56 | Hospitalist Progress Note ---
Date of Service September 13, 2018 Assessment & Plan (1) Seizure: Recurrent issue Seen in ED 09/07 with CXR, CT head, CBC, PRP, UA neg Continue Lamictal and Keppra at the current dosages which are currently maximal. Added vimpat BID on 09/11 Patient again had a seizure today. Discussed case with Dr. Singh, will increase vimpat to 100 mg PO BID. As this appears to be a chronic issue, ok for patient to be discharged tomorrow. Planning for JV, ok to be discharged tomorrow. (2) HTN (hypertension): continue home meds (3) Hyperlipidemia: continue home meds (4) GERD (gastroesophageal reflux disease): continue home meds (5) DVT prophylaxis: SCDs, likely short duration of admission and will hold on rx proph Spent 25 minutes in management of patient. Subjective Patient appears tired. Does not provide significant history. Nursing states that patient had a seizure where he gazed to his right and was smacking his lips. This lasted for a few minutes (less than 5). Patient was post ictal for a while, but then became verbal again. Physical Exam 2 Vital Signs (Past 24 Hours): Last Vital Signs Temp 36.5 C 09/13/18 19:10 Pulse 54 L 09/13/18 20:38 Resp 18 09/13/18 19:10 BP 122/80 09/13/18 20:38 Pulse Ox 95 09/13/18 20:38 Physical Exam: Constitutional: WD/WN, vitals as above Eyes: + anicteric sclerae Neck: normal visual inspection and trachea midline Respiratory: normal respiratory effort, lungs clear to auscultation Cardiovascular: Rate/Rhythm: regular rate and regular rhythm Gastrointestinal (Abdomen): Inspection/Auscultation: abdomen not distended Percussion/Palpation: abdomen soft; abdomen nontender Musculoskeletal: Head/Neck/Chest: normocephalic and head atraumatic negative for edema, peripheral pulses intact Skin: no rashes, warm and dry Neurologic: awake; not confused Speech / Cognition: normal speech Psychiatric: A+Ox3, euthymic affect
[2018-09-14] MEDS: DOXAZosin MESYLATE TAB 2 MG TAB PO SCH (09:10)
[2018-09-14] MEDS: DOCUSATE SODIUM 100 MG CAP PO SCH (09:10)
[2018-09-14] MEDS: PROPRANOLOL HCL 60 MG LA CAP PO SCH (09:11)
[2018-09-14] MEDS: levETIRAcetam 500 MG TAB PO SCH (09:11)
[2018-09-14] MEDS: lamoTRIgine 100 MG TAB PO SCH (09:12)
[2018-09-14] MEDS: CHLORHEXIDINE GLUCONATE 0.12% 480 ML MT SCH (09:13)
[2018-09-14] MEDS: PANTOprazole 40 MG TAB PO SCH (09:13)
[2018-09-14] MEDS: SENNA 8.6 MG TAB PO SCH (09:14)
[2018-09-14] MEDS: SODIUM CHLORIDE 1 GM TABLET PO SCH (09:15)
[2018-09-14] MEDS: LACOSAMIDE 50 MG TABLET PO SCH (09:15)
[2018-09-14] MEDS: AMANTADINE HCL 100 MG CAPSULE PO SCH (09:15)
[2018-09-14] MEDS: ZINC SULFATE 220 MG CAPSULE PO SCH (09:16)
[2018-09-14] MEDS: CYANOCOBALAMIN (VITAMIN B-12) 2,500 MCG TAB.SUBL SL SCH (09:16)
[2018-09-14] MEDS: CHOLECALCIFEROL 1,000 UNITS TAB PO SCH (09:16)
[2018-09-14] MEDS: ASCORBIC ACID 500 MG TAB PO SCH (09:16)
[2018-09-14] MEDS: MODAFINIL 100 MG TAB PO SCH (09:19)
[2018-09-14] MEDS ORDERED: LACTULOSE SYRUP 30 GM/45 ML UDP PO STA (10:35)
--- NOTE | 2018-09-16 13:08 | Discharge Summary ---
Date of Service September 14, 2018 Admission HPI Per Admitting Provider 72 y/o M who was brought to the ED for recurrent seizures. Pt was seen in the ED on 09/07 for increased seizure activity. He was treated with additional keppra dosing and sent back to [facility]. Pt continued to have increased seizure activity over the weekend and today the pt and family were told that he is requiring too much care for a H and will need placed in a SNF. Pt's seizures are reported to him as staring episodes and word repeating. He denies hx of shaking seizures. He states he feels fine at this time. He was able to eat most of a tray. Pt denies fever, SOB, chest pain, abd pain, n/v/c/d, LE pain or swelling. Outside of the increased seizures, he states he has felt at his usual. ED spoke with Dr. Espinoza who recommended for increased lamictal, 200mg to 400mg BID. He is familiar with pt from outpt care. ED also spoke with [facility] who has agreed to accept pt, however they would like him monitored overnight with this medication change. Family is not present during my discussion with pt. Principal Diagnosis seizure Discharge Exam Constitutional: WD/WN, vitals as above Eyes: + anicteric sclerae Neck: normal visual inspection and trachea midline Respiratory: normal respiratory effort, lungs clear to auscultation Cardiovascular: Rate/Rhythm: regular rate and regular rhythm Gastrointestinal (Abdomen): Inspection/Auscultation: abdomen not distended Percussion/Palpation: abdomen soft; abdomen nontender Musculoskeletal: Head/Neck/Chest: normocephalic and head atraumatic negative for edema, peripheral pulses intact Skin: no rashes, warm and dry Neurologic: awake; not confused Speech / Cognition: normal speech Psychiatric: A+Ox3, euthymic affect Discharge Data Allergies Allergy/AdvReac Type Severity Reaction Status Date / Time Penicillins Allergy Unknown . Verified 09/10/18 13:56 prochlorperazine AdvReac Intermediate tongue Verified 09/10/18 13:56 involuntary movements adhesive AdvReac Mild skin Verified 09/10/18 13:56 reaction latex AdvReac Mild RASH-LATEX Verified 09/10/18 13:56 TAPE amoxicillin AdvReac Unknown Unverified 09/10/18 13:56 Consultations 09/10/18 15:28 ED Decision to Admit Stat 09/10/18 18:32 Consult Case Management - Discharge Planning Routine Consult Neurology Routine Hospital Course (1) Seizure: Recurrent issue Seen in ED 09/07 with CXR, CT head, CBC, PRP, UA neg Continue Lamictal and Keppra at the current dosages which are currently maximal. Added vimpat BID on 09/11 Patient again had a seizure today. Discussed case with Dr. Singh, increased vimpat to 100 mg PO BID. As this appears to be a chronic issue, ok for patient to be discharged tody. (2) HTN (hypertension): continue home meds (3) Hyperlipidemia: continue home meds (4) GERD (gastroesophageal reflux disease): continue home meds (5) DVT prophylaxis: SCDs, Total Time Total Time Spent Total Time Spent (In Minutes): 31 Total Time Includes: Examination of the Patient, Discharge Planning and Medication Reconciliation Discharge Plan Discharge Items Patient Disposition: Transfer [facility] Reason For Visit: RECURRENT SEIZURES Discharge Diagnosis: Recurrent Seizures Condition: Good Discharge Goals: Decrease discomfort and Improve function Activity: Per 'Additional Instructions' section Activity Comment: Increase activities as tolerated. Continued rehab at SNF Non-emergency contact: Primary Care Provider Call non-emergency contact if: you have any medication questions Diet: Regular Addtl Provider Instructions: Continued rehab Followup with Dr. Ruel Espinoza from Neurology in 2 weeks Prescriptions: New lacosamide [Vimpat] 50 mg Tablet 100 mg PO BID Qty: 60 RF: 0 Continue levetiracetam [Keppra] 1,000 mg Tablet 2,000 mg PO BID RF: 0 multivitamin [Daily Vitamin Formula] Tablet 1 tab PO PM RF: 0 sennosides [senna] 8.6 mg Tablet 8.6 mg PO DAILY RF: 0 sennosides [senna] 8.6 mg Tablet 17.2 mg PO Q3D PRN (Reason: no bowel movement) RF: 0 acetaminophen [Tylenol] 325 mg Tablet 650 mg PO Q6H PRN (Reason: pain/fever) RF: 0 lamotrigine 200 mg tablet 200 mg PO DAILY RF: 0 lamotrigine 200 mg tablet 400 mg PO PM RF: 0 atorvastatin 10 mg tablet 10 mg PO PM RF: 0 ondansetron HCl [Zofran] 4 mg Tablet 4 mg PO TID PRN (Reason: Nausea And Vomiting) RF: 0 propranolol 60 mg capsule,extended release 24 hr 60 mg PO DAILY RF: 0 sodium chloride 1 gram Tablet 1,000 mg PO DAILY RF: 0 cyanocobalamin (vitamin B-12) [Vitamin B-12] 1,000 mcg Tablet 2,500 mcg PO DAILY RF: 0 melatonin 3 mg Tablet 6 mg PO HS RF: 0 amantadine HCl 100 mg capsule 100 mg PO DAILY RF: 0 ascorbic acid (vitamin C) [Vitamin C] 500 mg Tablet 500 mg PO DAILY RF: 0 pantoprazole 40 mg tablet,delayed release (DR/EC) 40 mg PO DAILY RF: 0 docusate sodium [Colace] 100 mg Capsule 100 mg PO BID RF: 0 polyethylene glycol 3350 [GlycoLax] 17 gram/dose Powder 17 g PO DAILY PRN (Reason: Constipation) RF: 0 doxazosin 2 mg tablet 2 mg PO BID RF: 0 modafinil 100 mg tablet 100 mg PO DAILY RF: 0 chlorhexidine gluconate 0.12 % mouthwash 15 ml PO BID RF: 0 zinc sulfate 220 (50) mg Capsule 220 mg PO DAILY RF: 0 cholecalciferol (vitamin D3) [Vitamin D3] 1,000 unit Tablet 2,000 unit PO DAILY RF: 0 Stand-Alone Forms: [facility] Discharge Orders: Discharge Order (Routine); Ordered 09/14/18 Ordered By: Hugo Flores Skilled Items Patient informed of condition?: Yes DNR: No Discharge Level of Care: Skilled Communicable Disease: No Discharge Prognosis: Stable Admission Data Admit Date/Time: 09/11/18 10:40 Attending Provider: Hugo Flores Admit Provider: Ivett Johansen Primary Care Provider: MARCOS FLEMING Other Providers: Ivett Johansen Emile Pierre III Service: Telemetry Other Interventions: Discharge Summary Assessment (RN) Last Done: 09/14/18 13:28 DC Date/Time DO NOT enter until pt leaves facility: 09/14/18 15:16
== END 2018-09-14 15:16 | DRG 101 ==
LOC: 2W 12:28 → ED 12:28 → SUATTDRO 17:38 → 2W 18:07